=== PATIENT | female | born 1965 | race Caucasian/White ===

== ENCOUNTER 2018-02-08 11:54 | Day surgery (SDC) | payer OTHER ==
[~2018-02-08] VITALS: Ht 167.6 cm; Wt 77.3 kg
[~2018-02-08 11:54] MED LIST: ALBU90OI INH; ASPI81CH; ERGO400 PO; Esgic Tablet1 EACH; GINKGO BILOBA120 MG; Ginseng100 MG; HYDACE5 PO; HYDACE5325 PO; Hair, Skin & N1 EACH; LEVSOD125; LORA.5 PO; MAGOXI400 PO; METO50ER PO; PANT40 PO; SUMA25 PO; TIZANIDINE PO; Zanaflex4 M1
== END 2018-02-08 15:25 | disposition home or self-care (01) ==
LOC: ORSCSDS 11:54
PROVIDERS: Internal Medicine Gastroenterology
PROC: 0DBL8ZX Excision of Transverse Colon, Via Natural or Artificial Opening Endoscopic, Diagnostic (ICD-10-PCS; principal; 2018-02-08 13:30)
DX: Z12.11 Encounter for screening for malignant neoplasm of colon (principal); D12.3 Benign neoplasm of transverse colon; K57.30 Diverticulosis of large intestine without perforation or abscess without bleeding; E03.9 Hypothyroidism, unspecified; E78.5 Hyperlipidemia, unspecified; Z86.010 Personal history of colon polyps; Z79.899 Other long term (current) drug therapy
CPT/HCPCS: 88305; J1980; J7120

== ENCOUNTER 2024-08-22 07:17 | Day surgery (SDC) | payer OTHER ==
[~2024-08-22] VITALS: Ht 167.6 cm; Wt 79.9 kg
[2024-08-22] MEDS ORDERED: propofoL 50 ML IV ONE (07:51)
[2024-08-22] MEDS ORDERED: Lactated Ringer's 1,000 ML IV ONE ×2 (07:51→08:07)
[2024-08-22] MEDS ORDERED: Amitriptyline H10 MG PO (08:05)
[2024-08-22] MEDS ORDERED: TOPI50 PO (08:06)
[2024-08-22 09:20] VITALS: BP 119/86
== END 2024-08-22 09:20 | disposition home or self-care (01) ==
LOC: ORSCSDS 07:17
PROVIDERS: Internal Medicine Gastroenterology
PROC: 0DBC8ZX Excision of Ileocecal Valve, Via Natural or Artificial Opening Endoscopic, Diagnostic (ICD-10-PCS; principal; 2024-08-22 08:45)
DX: Z12.11 Encounter for screening for malignant neoplasm of colon (principal); Z86.0101 Personal history of adenomatous and serrated colon polyps; K63.89 Other specified diseases of intestine; D12.0 Benign neoplasm of cecum; E78.5 Hyperlipidemia, unspecified; H52.10 Myopia, unspecified eye; Z79.899 Other long term (current) drug therapy
CPT/HCPCS: 88305; J2704; J7120